=== PATIENT | female | born 1990 | race Caucasian/White ===

== ENCOUNTER → 2020-09-07 12:48 | Outpatient (CLI) | payer OTHER, SELFPAY ==
--- NOTE | ~2020-09-07 | US_ITS ---
EXAMINATION: US OB >= 14 weeks Fetus DATE: 09/07/2020 13:27 INDICATION: survey TECHNIQUE: Multiple obstetric sonographic images performed. FINDINGS: No prior studies for comparison. There is a single living fetus in variable presentation. The placenta is posterior without placenta previa. Placental margin is 3.2 cm from the cervix. Amniotic fluid volume is normal. cardiac activity and movement is noted with a heart rate of 151 beats per minute. The following anatomy was identified as normal: 3 vessel cord cord insertion urinary bladder stomach spine diaphragm ventricles cisterna magna cerebellum 4 chamber heart and kidneys are not well visualized. Recommend attention to these structures on subse quent study. The following biometric data were obtained: BPD: 38mm corresponds to gestational age 17 weeks 5 days. Head circumference: 142 mm corresponds to gestational age 17 weeks 3 days. Abdominal circumference: 112 mm corresponds to gestational age 17 weeks 3 days. Femur length: 25 mm corresponds to gestational age 17 weeks 3 days. Head circumference to abdominal circumference ratio: 1.2 (normal range for expected gestational age i s 1.08-1.28). Estimated weight: 198 grams +/- 30 grams using Hadlock method. IMPRESSION: 1: Single living intrauterine with an estimated gestational age of 17weeks 4days by current ultrasound measurements, with an EDC of 02/11/2021 in variable presentation. 2. survey limited for evaluation of four-chamber heart and kidneys. Otherwise, unremarkable fe boby survey. Recommend attention to these structures on subsequent examination.. Reviewed, dictated and finalized at location A. IMPRESSION: 1: Single living intrauterine with an estimated gestational age of 17 weeks 4days by current ultrasound measurements, with an EDC of 02/11/2021 in sarai iable presentation. 2. survey limited for evaluation of four-chamber heart and kidneys. Othe rwise, unremarkable survey. Recommend attention to these structures on tsang bsequent examination..
== END ==
PROVIDERS: Visit Provider Obstetrics & Gynecology Gynecology
DX: Z36.9 Encounter for antenatal screening, unspecified (principal); Z3A.17 17 weeks gestation of pregnancy
CPT/HCPCS: 76805

== ENCOUNTER → 2020-10-06 12:41 | Outpatient (CLI) | payer OTHER, SELFPAY ==
--- NOTE | ~2020-10-06 | US_ITS ---
EXAMINATION: US OB follow up DATE: 10/06/2020 13:04 INDICATION: Incomplete anatomic survey TECHNIQUE: Real-time ultrasound of the pelvis was performed. The interpreting radiologist was not pre sent for the study. COMPARISON: 09/07/2020 FINDINGS: There is a single living fetus in breech presentation. The placenta is posterior and 5.1 cm from the internal cervical os. cardiac activity and movement are noted. heart rate is 144 beats per minute (bpm). The amniotic fluid index is subjectively normal. The heart and kidney s appear normal. The following biometric data were obtained: Biparietal diameter (BPD): 5.1 cm; head circumference (HC): 19.6 cm; abdominal circumference (AC): 16 .6 cm; femur length (FL): 3.6 cm. These measurements are concordant. Estimated weight is 439 g +/- 65 g, which correlates with the 40th percentile when 02/11/2021 is used as estimated date of delivery. As single measurements, these parameters are each equal to the following estimated gestational ages w ith ranges of +/- 2 standard deviations: BPD: 21 weeks 4 days ( 19 weeks 6 days - 23 weeks 2 days). HC: 21 weeks 6 days ( 20 weeks 2 days - 23 weeks 2 days). AC: 21 weeks 5 days ( 19 weeks 4 days - 23 weeks 5 days). FL: 21 weeks 4 days ( 19 weeks 6 days - 23 weeks 3 days). estimated gestational age based solely on measurements from this exam is 21 weeks 5 days +/- 1 weeks 4 days. IMPRESSION: 1. Single living fetus in breech presentation. 2. Estimated weight is 439 g +/- 65 g, which correlates with the 40th percentile when 02/11/2021 is used as estimated date of delivery. 3. Normal-appearing heart and kidneys. Reviewed, dictated and finalized at location A. IMPRESSION: 1. Single living fetus in breech presentation. 2. Estimated weight is 439 g +/- 65 g, which correlates with the 40th per centile when 02/11/2021 is used as estimated date of delivery. 3. Normal-appearing heart and kidneys.
== END ==
PROVIDERS: Visit Provider Nurse Practitioner
DX: Z34.92 Encounter for supervision of normal pregnancy, unspecified, second trimester (principal); Z3A.21 21 weeks gestation of pregnancy
CPT/HCPCS: 76816

== ENCOUNTER → 2021-01-12 11:11 | Outpatient (CLI) | payer OTHER, SELFPAY ==
--- NOTE | ~2021-01-12 | US_ITS ---
US OB follow up DATE: 01/12/2021 11:33 INDICATION: Evaluate growth and amniotic fluid level TECHNIQUE: Real-time imaging and Doppler analysis COMPARISON: 10/06/2020 obstetrical ultrasound / ventricle ultrasound FINDINGS: Live robins intrauterine gestation, fetus in breech presentation, heart rate of 13 0 bpm. Fundal placenta. Amniotic fluid index measures 21.1 cm, within upper normal range. (5th percentile ANNIE: 7.9 cm; 95th p ercentile ANNIE: 24.9 cm). Biparietal diameter 8.67 cm; 35 weeks Head circumference 31.79 cm; 35 weeks 5 days Abdominal circumference 30.44 cm; 34 weeks 3 days Femur length 6.56 cm; 33 weeks 6 days Composite age by Hadlock formula is 34 weeks 5 days +/- 2 weeks 3 days, with ESTEBAN of 02/18/2021, compar ed to 02/11/2021 on 09/07/2020 obstetrical ultrasound examination. Estimated weight is 2428 +/- 364 g. Femur length/BPD 75.66, within normal range of 71.0-87.0 Head circumference/abdominal circumference1.04, within normal range of 0.93-1.11 Femur length/abdominal circumference 21.54, within normal range of 20.00-24.00 Femur length/head circumference 20.63, within normal range of 19.90-22.16 IMPRESSION: Composite age by Hadlock formula is 34 weeks 5 days +/- 2 weeks 3 days, with ESTEBAN of 2020, compared to 02/11/2021 on 09/07/2020 obstetrical ultrasound examination. Amniotic fluid index measures 21.1 cm, within upper normal range. (5th percentile ANNIE: 7.9 cm; 95th p ercentile ANNIE: 24.9 cm). Estimated weight is 2428 +/- 364 g. Reviewed, dictated and finalized at Location A. Reviewed, dictated and finalized at location A. IMPRESSION: Composite age by Hadlock formula is 34 weeks 5 days +/- 2 weeks 3 d ays, with ESTEBAN of 02/18/2021, compared to 02/11/2021 on 09/07/2020 obstetrical ultr asound examination. Amniotic fluid index measures 21.1 cm, within upper normal range. (5th percenti le ANNIE: 7.9 cm; 95th percentile ANNIE: 24.9 cm). Estimated weight is 2428 +/- 364 g.
== END ==
PROVIDERS: Visit Provider Obstetrics & Gynecology Gynecology
DX: Z36.9 Encounter for antenatal screening, unspecified (principal); Z3A.34 34 weeks gestation of pregnancy
CPT/HCPCS: 76816

== ENCOUNTER 2021-02-06 06:22 | Inpatient (IN) | payer OTHER, SELFPAY ==
[2021-02-06] VITALS (85 sets, daily range): BP systolic 84–144; BP diastolic 39–117; PULSE 66–107; RESP 16; TEMP 36.3–37.1; O2SAT 95–100; BMI 40.6
[2021-02-06 07:05] LABS: Basophils Percent Auto 0.2 % (0.2-1.2); Eosinophils Absolute Auto 0.1 K/mm3 (0-0.3); Hematocrit 37.2 % (37.0-47.0); Hemoglobin 12.7 g/dL (12.0-15.0); Immature Granulocyte Absolute 0.09 K/mm3 (0.00-0.031); Immature Granulocyte Percent A 0.7 % (0-0.5); Lymphocytes Absolute Auto 2.83 K/mm3 (0.9-3.2); Lymphocytes Percent Auto 23.4 % (18.3-44.2); Mean Corpuscular HGB Conc 34.1 g/dl (32-36); Mean Corpuscular Hemoglobin 30.7 pg (26-34); Mean Corpuscular Volume 89.9 fl (80-100); Mean Platelet Volume 10.7 fl (7.4-10.4); Monocytes Absolute Auto 0.7 K/mm3 (0.1-0.6); Neutrophils Absolute Auto 8.3 K/mm3 (1.3-6.7); Neutrophils Percent Auto 68.7 % (45.5-73.1); Platelet Count Result 170 k/mm3 (150-375); Red Blood Count 4.14 M/mm3 (4.2-5.4); Red Cell Distribution Width 13.2 % (11.5-14.5); White Blood Count 12.1 K/mm3 (4.5-10.0)
--- NOTE | 2021-02-06 07:16 | LDADM ---
This patient, Giulia Tirado, was admitted to Labor/Delivery/Recovery 105 on 02/06/21 at 06:22. Plans for labor, pain management and were discussed with patient. Patient/family oriented to hospital policies and general routines including ID bracelet, bed and alarms, visiting hours, pain management, procedures, bathroom and other care routines, personal items, smoking policy, room service/diet and guest tray routines, security routines, and visiting hours. Patient/Family are encouraged to report perceived risks to care and to ask questions if they do not understand what they are told or what they should do. See OBIX for further documentation.
[2021-02-06] MEDS: LACTATED RINGERS 1,000 ML 125 ML IV CONT (07:23)
[2021-02-06] MEDS: OXYTOCIN 30 UNITS/NS 500 ML 30 UNITS/500 ML BAG IV CONT (07:33)
--- NOTE | 2021-02-06 08:21 | WPDOBADMIT ---
Obstetrics - Admit Note Admission Note: record reviewed. No pertinent additions to the history and/or any subsequent changes in the physical findings that are not consistent with the expected course of the were found. Additions to the history and/or subsequent changes in the physical findings follow. Here for medical induction of labor at 39 weeks. Cervix is 1/thick/-3 AROM with clear fluid noted. heart tones are reactive.
[2021-02-06 10:08] LABS: Rapid Plasma Reagin Non-Reactive (NonReactive)
[2021-02-06] MEDS: LACTATED RINGERS 1,000 ML 999 ML IV CONT ×2 (13:38→14:16)
--- NOTE | 2021-02-06 13:55 | P.PNAN_ITS ---
Anes - Eval Pre Procedure Procedure: LAbor epidural Date/Time: 02/06/21 13:55 Surgeon: Carmen Preop Diagnosis: Abd pain with contractions Pre Op Diagnosis: Induction of Labor Patient Data Age: 30 Gender: F Height: 1.6 m Weight: 104 kg Last Vital Signs Temp 97.7 F 02/06/21 13:00 Pulse 83 02/06/21 13:31 BP 103/39 L 02/06/21 13:31 Pulse Ox 100 02/06/21 13:49 Allergies Allergy/AdvReac Type Severity Reaction Status Date / Time No Known Allergies Allergy Unverified 12/15/18 18:38 Home Medications Medication Instructions Recorded Confirmed Type PNV cmb#95-ferrous fumarate-FA 1 tablet PO DAILY 01/16/21 02/06/21 History [] ergocalciferol (vitamin D2) 50,000 unit PO 2XW 02/06/21 02/06/21 History Laboratory Tests 02/06/21 02/06/21 02/06/21 06:55 06:55 06:55 WBC 12.1 K/mm3 H K/mm3 (4.5-10.0) RBC 4.14 M/mm3 L M/mm3 (4.2-5.4) Hgb 12.7 g/dL g/dL (12.0-15.0) Hct 37.2 % % (37.0-47.0) MCV 89.9 fl fl (80-100) MCH 30.7 pg pg (26-34) MCHC 34.1 g/dl g/dl (32-36) RDW 13.2 % % (11.5-14.5) Plt Count 170 k/mm3 k/mm3 (150-375) MPV 10.7 fl H fl (7.4-10.4) Immature Gran % (Auto) 0.7 % H % (0-0.5) Neut % (Auto) 68.7 % % (45.5-73.1) Lymph % (Auto) 23.4 % % (18.3-44.2) [place] % (Auto) 6.0 % % (2.6-8.5) Eos % (Auto) 1.0 % % (0-4.4) Baso % (Auto) 0.2 % % (0.2-1.2) Lymph # (Auto) 2.83 K/mm3 K/mm3 (0.9-3.2) [place] # (Auto) 0.7 K/mm3 H K/mm3 (0.1-0.6) Eos # (Auto) 0.1 K/mm3 K/mm3 (0-0.3) Baso # (Auto) 0.0 K/mm3 K/mm3 (0.0-0.1) Abs Immat Gran (auto) 0.09 K/mm3 H K/mm3 (0.00-0.031) Absolute Neuts (auto) 8.3 K/mm3 H K/mm3 (1.3-6.7) Absolute Nucleated RBC 0.0 K/mm3 K/mm3 (0.0-0.012) Nucleated RBC % 0.0 % % (0.0-0.2) RPR Non-reactive (NonReactive) Blood Type O Positive Antibody Screen Negative Patient hx anesthesia problems: none Family hx anesthesia problems: none PMFSH Past Medical History Medical History Morbid obesity and not yet delivered Family History Family History Mother Fibromyalgia Social History Social History Smoking status: Never smoker Second hand tobacco smoke exposure: No Substance use: never Spiritual care concerns: No Exam Day of Procedure 02/06/21 13:55 Patient weight: morbidly obese Airway: Mallampati scale class II Neurological: alert and oriented
--- NOTE | 2021-02-06 16:37 | PM.OBPRVD ---
OB - Delivery Note Procedure Delivery date: 02/06/21 Procedure: events: Labor Induction Intrapartal events: None Induction method: AROM and per pitocin protocol Delivery monitor: external FHT and external uterine Route of delivery: Laceration Description: None Specimen: No Quantitative Blood Loss (ml): 100 Anesthesia type: Epidural Disposition: floor Baby Date of : 02/06/21 Weeks of gestation at delivery: 39 gender: Female presentation: vertex position: Right Occiput Anterior Placenta delivery description: Spontaneous cord vessel description: 3 Vessels, Nuchal Cord (delivered through) and Around Extremity x2 (feet) score one minute: 8 score five minutes: 9
--- NOTE | 2021-02-06 16:38 | PM.OBDSVD ---
DS: Admitting Diagnosis Discharge Date 02/07/21 Admitting Diagnosis IUP 39 wks MIL DS: Discharge Diagnosis Discharge Diagnosis (1) (normal spontaneous vaginal delivery): Code(s): O80 - Encounter for full-term uncomplicated delivery Status: Acute OB - DS: Summary OB Procedures : Ultrasound OB Procedures Intrapartum: Spontaneous Vag Delivery OB Procedures: : None Peripartum Data Infant Delivery Method: Natural Vaginal Laceration Description: None complications: none Status at Discharge Functional status at discharge: independent ambulation Overall status at discharge: patient is progressing back to baseline Time Spent with Patient Time attestation: Total time spent providing and/or coordinating discharge services: DS: Data Data Completed and Pending Labs on day of discharge: Labs from last 24 hours 02/06/21 02/06/21 02/06/21 06:55 06:55 06:55 WBC 12.1 H RBC 4.14 L Hgb 12.7 Hct 37.2 MCV 89.9 MCH 30.7 MCHC 34.1 RDW 13.2 Plt Count 170 MPV 10.7 H Immature Gran % (Auto) 0.7 H Neut % (Auto) 68.7 Lymph % (Auto) 23.4 [place] % (Auto) 6.0 Eos % (Auto) 1.0 Baso % (Auto) 0.2 Lymph # (Auto) 2.83 [place] # (Auto) 0.7 H Eos # (Auto) 0.1 Baso # (Auto) 0.0 Abs Immat Gran (auto) 0.09 H Absolute Neuts (auto) 8.3 H Absolute Nucleated RBC 0.0 Nucleated RBC % 0.0 RPR Non-reactive Blood Type O Positive Antibody Screen Negative Discharge Plan Discharge Attending physician on discharge: Maddy Morales Discharging Clinician: Maddy Morales Anticipated Discharge Date/Time: 02/08/21 16:39 Patient Disposition: Home, Self-Care Activity: may shower and pelvic rest Diet: regular Patient Instructions: Antibiotic Form Stand Alone Forms: General Discharge Information Follow-up/Referrals: Maddy Morales MD [Physician] - 6 Weeks Discharge Medications: Continued PNV cmb#95-ferrous fumarate-FA [] 28 mg iron- 800 mcg Tablet 1 tablet PO DAILY RF: 0 ergocalciferol (vitamin D2) 1,250 mcg (50,000 unit) capsule 50,000 unit PO 2XW RF: 0 Date of admission: 02/06/21 06:22 Primary Care Provider: PHYSICIAN,SOFTWARE QUALITY ENGINEER Admitting Provider: Maddy Morales Attending physician on admission: Maddy Morales Condition: Stable
[2021-02-06] MEDS: OXYTOCIN 30 UNITS/NS 500 ML 30 UNITS/500 ML BAG 125 UNITS IV CONT (17:03)
--- NOTE | 2021-02-06 19:14 | OBPPTRN ---
Patient transferred to post room #283 via wheelchair. Support person present. Oriented to unit, room, information board, rooming in, admission packet and security measures. Patient verbalizes understanding.
[2021-02-07] VITALS: BP 113/62; PULSE 75; RESP 16; TEMP 36.9; O2SAT 97
[2021-02-07] MEDS: IBUPROFEN 600 MG TABLET PO ×2 (03:15→10:00)
[2021-02-07 03:30] VITALS: BP 108/74; PULSE 74; RESP 16; TEMP 36.8; O2SAT 98
[2021-02-07 04:25] LABS: Hematocrit 35.4 % (37.0-47.0); Hemoglobin 11.9 g/dL (12.0-15.0)
[2021-02-07 07:40] VITALS: BP 135/83; PULSE 77; RESP 16; TEMP 36.7; O2SAT 98
--- NOTE | 2021-02-07 07:42 | PM.OBPNVD ---
OB - PN: Subj Subjective Date/time seen: 02/07/21 07:42 Patient comments: no complaints and pain well controlled baby status: doing well OB - PN: Obj Data Labs CBC & Chem 7: 02/07/21 03:13 Labs: Laboratory Results - last 24 hr 02/06/21 02/06/21 02/07/21 06:55 06:55 03:13 Hgb 11.9 L Hct 35.4 L RPR Non-reactive Blood Type O Positive Antibody Screen Negative OB - PN A/P Plan day: 1 Plan: routine care, discharge home, follow up 6 weeks and other (unsure bc plans) Time Spent With Patient Time: Total time spent is greater than 50% in coordination of care (as documented) at patient's floor/unit and/or counseling patient: Exam : Bimanual exam- vagina & uterus: other (Uterus firm, nt @U)
[2021-02-07] MEDS: MULTIVIT/MIN/PREN/FOL AC/IRON TABLET 1 TAB PO (08:16)
--- NOTE | 2021-02-07 10:29 | WPDANLDPN2 ---
Anes-Prog Note L&D Date/Time: 02/07/21 10:29 Comfortable throughout: labor and delivery Neuraxial method: epidural Epidural/Spinal procedure site: clean & non-tender Neuro status: Neuro function grossly intact. Cardiovascular status: normal Respiratory status: normal Airway patency: baseline Mental status: baseline Post-Op hydration status: normal Vital Signs: Last Vital Signs Temp 36.7 C 02/07/21 07:40 Pulse 77 02/07/21 07:40 Resp 16 02/07/21 07:40 BP 135/83 02/07/21 07:40 Pulse Ox 98 02/07/21 07:40 Pain score (VAS): 0 I/O: Intake & Output 02/06/21 02/07/21 02/07/21 23:59 07:59 15:59 Intake Total 500 Output Total 185 Balance 315 Post-procedural complaints: none Patient feedback: Patient satisfied with anesthetic care.
--- NOTE | 2021-02-07 11:00 | PCDIET ---
Mother called out for assist with feeding, reporting is sleepy and not maintaining latch.. is able to freely thrust tongue past gum ridge and flange both lips. Skin is intact on both nipples, no redness and bruising noted. Reviewed infant feeding cues, frequencies, duration of feedings, feeding elimination flow sheet, and signs of adequate intake. Demonstrated stimulation techniques to wake infant for feeding. Assisted with to breast. Reviewed positioning/alignment in cross cradle, holding breast in ?U? hold and guided asymmetrical latch on. Reviewed rational for each. Infant able to latch correctly within a few attempts. nursed eagerly with steady draws and occasional swallowing noted, some pausing noted. Reviewed signs of a correct latch, effective nursing and suck swallow ratio. Suggested mother stimulate while feeding to increase stimulate, increase intake and to assist with maintaining deep latch. Mother would release U hold and was unable to maintain latch causing nipple discomfort to mother. Infant would slip to shallow latch. Demonstrated how to adjust latch more deeply while feeding if needed. Advised to continue to hold breast during the entire feeding to assist infant with maintaining latch. This may need to be done for the next few days. Mother reports she can feel the difference in latch with no tenderness. Nipple care reviewed of lanolin after feedings, warm compresses as needed. Instructed mother to call out for RN assistance if she is unable to latch for feeding or she has discomfort with nursing. Instructed feeding should be initiated three hours from start of last feeding or if feeding cues are noted before. Mother voiced understanding of information shared.
[2021-02-07 11:45] VITALS: BP 138/78; PULSE 78; RESP 16; TEMP 36.4; O2SAT 98
[2021-02-07 16:00] VITALS: BP 136/75; PULSE 77; RESP 18; TEMP 36.7; O2SAT 99
--- NOTE | 2021-02-07 17:18 | PC.NURSE ---
Patient viewed the discharge video Mother & Baby Care, The First Two Weeks . Patient was given the opportunity and encouraged to ask questions. Patient verbalized understanding of information shared and has been given the mother/baby guide for home reference.
[2021-02-09 10:24] VITALS: BP 139/71; PULSE 70; RESP 18; TEMP 36.9; O2SAT 99
== END 2021-02-07 17:40 | disposition home or self-care (01) | DRG 807 ==
LOC: ANHLDR 16:39 → ANHOB2 20:16
PROVIDERS: Admitting Provider Obstetrics & Gynecology Gynecology; Visit Provider Obstetrics & Gynecology Gynecology
DX: O69.82X0 Labor and delivery complicated by other cord entanglement, without compression, not applicable or unspecified (principal); Z37.0 Single live birth; Z3A.39 39 weeks gestation of pregnancy; O99.214 Obesity complicating childbirth; E66.01 Morbid (severe) obesity due to excess calories
CPT/HCPCS: 36415; 85014; 85018; 85025; 86592; 86850; 86900; 86901; A9270; J2590; J2795; J7120